=== PATIENT | male | born 1945 | race Caucasian/White ===

== ENCOUNTER 2024-06-21 15:22 | Outpatient (CLI) | payer MEDICARE, OTHER | END 2024-06-21 15:23 | disposition home or self-care (01) | LOC: RAD 15:22 | PROVIDERS: ATTEND Physician Assistant | DX: I48.0 Paroxysmal atrial fibrillation (principal); I51.7 Cardiomegaly | CPT/HCPCS: 71046 ==

== ENCOUNTER 2025-05-26 16:30 | Outpatient (CLI) | payer OTHER ==
[2025-05-26 17:05] LABS: #Basophils 0.06 10x3/uL (0.0-0.2); #Eosinophils 0.30 10x3/uL (0.0-0.7); #Monocytes 0.94 10x3/uL (0.11-0.59); #Neutrophils 6.85 10x3/uL (1.40-6.50); %Basophils 0.6 % (0.0-1.0); %Eosinophils 3.1 % (0.0-10.0); %Lymphocytes 16.0 % (21.0-51.0); %Monocytes 9.6 % (0.0-10.0); %Neutrophils 70.1 % (42.0-75.0); Hematocrit 40.2 % (42.0-52.0); Hemoglobin 12.7 g/dL (14.0-18.0); Mean Corpuscular Hemoglobin 27.5 pg (27.0-31.0); Mean Corpuscular Volume 87.2 fL (78.0-98.0); Platelet Count 298 10x3/uL (130-400); Red Blood Cell (RBC) Count 4.61 mill/uL (4.70-6.10); White Blood Cell (WBC) Count 9.77 10x3/uL (4.8-10.8)
[2025-05-26 17:16] LABS: INR-International Normal Ratio 1.3; PTT 34.2 sec (22.9-36.1); Prothrombin Time 16.0 sec (12.0-14.7)
[2025-05-26 17:42] LABS: ALT (SGPT) 27 U/L (Less than 45); AST (SGOT) 30 U/L (11-34); Albumin 3.3 g/dL (3.1-4.5); Alkaline Phosphatase 101 U/L (40-110); Anion Gap 9 mmol/L (10-20); BUN (Urea Nitrogen) 15 mg/dL (8.4-25.7); Bilirubin, Direct 0.2 mg/dL (0.1-0.3); Bilirubin, Total 0.5 mg/dL (0.3-1.2); Calc. Creatinine Clearance 0 mL/min (70-130); Calcium 10.2 mg/dL (7.8-10.44); Carbon Dioxide 24 mmol/L (23-31); Chloride 106 mmol/L (98-107); Glucose 87 mg/dL (83-110); Potassium 3.8 mmol/L (3.5-5.1); Sodium 135 mmol/L (136-145)
[2025-05-26 17:52] LABS: T4 11.78 ug/dL (4.87-11.72)
== END 2025-05-26 16:31 | disposition home or self-care (01) ==
LOC: LABBT 16:30
PROVIDERS: ATTEND Internal Medicine Cardiovascular Disease
DX: Z01.812 Encounter for preprocedural laboratory examination (principal); I48.19 Other persistent atrial fibrillation; I50.22 Chronic systolic (congestive) heart failure
CPT/HCPCS: 80048; 80076; 84436; 84443; 84479; 85025; 85610; 85730

== ENCOUNTER 2025-06-13 07:16 | Day surgery (SDC) | payer OTHER ==
[2025-06-12 08:49] VITALS: BMI 31.1
[2025-06-13] MEDS ORDERED: Lidocaine 1% (PF) 30 ML VIAL ONE (07:24)
[2025-06-13] MEDS ORDERED: LevoFLOXacin D5W 500 mg (100 mL) BAG ONE (08:06)
[2025-06-13] MEDS ORDERED: PHENYLEPHRINE-NS 100 MCG/ML 10 ML SYRINGE ONE ×2 (09:42→11:57)
[2025-06-13] MEDS ORDERED: PROPOFOL 200 MG/20 ML VIAL ONE (09:42)
[2025-06-13] MEDS ORDERED: Etomidate 40 MG (20 mL) VIAL ONE (09:46)
== END 2025-06-13 16:40 | disposition home or self-care (01) ==
LOC: SDC 07:16
PROVIDERS: ATTEND Internal Medicine Cardiovascular Disease
PROC: 02PA3MZ Removal of Cardiac Lead from Heart, Percutaneous Approach (ICD-10-PCS; principal; 2025-06-13)
PROC: 0JPT0PZ Removal of Cardiac Rhythm Related Device from Trunk Subcutaneous Tissue and Fascia, Open Approach (ICD-10-PCS; principal; 2025-06-13)
PROC: 02HK3JZ Insertion of Pacemaker Lead into Right Ventricle, Percutaneous Approach (ICD-10-PCS; principal; 2025-06-13)
PROC: 0JH606Z Insertion of Pacemaker, Dual Chamber into Chest Subcutaneous Tissue and Fascia, Open Approach (ICD-10-PCS; principal; 2025-06-13)
PROC: 02H63JZ Insertion of Pacemaker Lead into Right Atrium, Percutaneous Approach (ICD-10-PCS; principal; 2025-06-13)
DX: I48.19 Other persistent atrial fibrillation (principal); I50.9 Heart failure, unspecified; I49.5 Sick sinus syndrome; I44.0 Atrioventricular block, first degree; Z98.41 Cataract extraction status, right eye; Z98.42 Cataract extraction status, left eye; Z90.49 Acquired absence of other specified parts of digestive tract; Z98.890 Other specified postprocedural states; Z91.041 Radiographic dye allergy status; Z88.8 Allergy status to other drugs, medicaments and biological substances; Z88.0 Allergy status to penicillin
CPT/HCPCS: 33217; 33221; 33233; 36416; 71045; 93005; 93010; C1769; C1898; C1900; C2621; J1580; J1956; J2003; J2704; J3490